=== PATIENT | female | born 1975 | race Hispanic/Latino ===

== ENCOUNTER 2019-03-26 18:50 | Emergency (ER) | payer SELFPAY ==
--- NOTE | 2019-03-26 19:04 | Emergency Department Report ---
Blank Doc - Documentation Documentation: This is a 43-year-old female that presents with abdominal pain and n/v. This initial assessment/diagnostic orders/clinical plan/treatment(s) is/are subject to change based on patient's health status, clinical progression and re- assessment by fellow clinical providers in the ED. Further treatment and workup at subsequent clinical providers discretion. Patient/guardians urged not to elope from the ED as their condition may be serious if not clinically assessed and managed. Initial orders include: 1- Patient sent to [facility] for further evaluation and treatment 2- labs 3- UA
[2019-03-26 19:06] VITALS: BP 185/114
== END 2019-03-26 22:15 | disposition left against medical advice (07) ==
LOC: ED 18:50
DX: R10.9 Unspecified abdominal pain (principal); Z53.21 Procedure and treatment not carried out due to patient leaving prior to being seen by health care provider